=== PATIENT | male | born 1985 | race Caucasian/White ===

== ENCOUNTER 2021-10-21 14:48 | Emergency (ER) | payer SELFPAY ==
[~2021-10-21] VITALS: Ht 175 cm; Wt 100.0 kg
--- NOTE | 2021-10-21 15:30 | ED General ---
General Chief Complaint: General Problems/Pain Stated Complaint: NUMBNESS IN LEFT ARM - DIZZY - BILAT LEG PAIN Nursing Triage Note: PT TO ED W/ C/O "VEINS IN LEFT SHOULDER, ARM ET HAND 'STICKING OUT' ONSET X1 WK AGO ET AGAIN TODAY WHILE AT [employer]." PT ALSO REPORTS PAIN ET NUMBNESS TO BLL ONSET W/ ARM PAIN ET NUMBNESS. REPORTS CURRENTLY BEING TX FOR WC INJURY TO LT SHOULDER AFTER INJURING ON A SHELF AT WORK. NO OTHER C/O VOICED. Source of Information: Patient Exam Limitations: No Limitations History of Present Illness Date Seen by Provider: Oct 21, 2021 Time Seen by Provider: 14:56 Initial Comments This 35-year-old man presents to the emergency room with primary complaint of "bulging veins" and discomfort in the left chest, shoulder, and arm. He attempts to show me 1 of these bulging veins in the chest at the lateral aspect of his pectoralis muscle but this could be neither seen nor felt. He had an episode today and 1 about a week ago. He is noted to be hypertensive and sweating. However, it is very hot outside and his diaphoresis may be from the heat. He does appear rather anxious. He reports a remote injury over a year ago in which he struck his shoulder on a shelf at work. He describes an associated numbness in his arm and aching of the legs. Allergies and Home Medications Allergies Coded Allergies: No Known Drug Allergies (Unverified , 10/21/21) Patient Home Medication List Home Medication List Reviewed: Yes Review of Systems Review of Systems Constitutional: see HPI, diaphoresis EENTM: no symptoms reported Respiratory: no symptoms reported Cardiovascular: see HPI Gastrointestinal: no symptoms reported Genitourinary: no symptoms reported Musculoskeletal: see HPI Skin: no symptoms reported Psychiatric/Neurological: See HPI Hematologic/Lymphatic: No Symptoms Reported Past Hodrchs-Nuwmnz-Ugxwvt Hx Patient Social History Tobacco Use?: No Use of E-Cig and/or Vaping dev: Yes E-Cig or Vaping type used: Nicotine Substance use?: Yes Substance type: Marijuana Alcohol Use?: Yes Alcohol Frequency: Rarely Pt feels they are or have been: No Past Medical History Surgery/Hospitalization HX: CURRENTLY BEING TX FOR LT SHOULDER INJURY R/T WC. STATES RAN INTO A SHELF AT WORK SEVERAL WEEKS AGO Surgeries: No Respiratory: No Cardiac: No Neurological: No Genitourinary: No Gastrointestinal: No Musculoskeletal: No Endocrine: No HEENT: No Cancer: No Psychosocial: No Integumentary: No Physical Exam Vital Signs Vital Signs - First Documented 10/21/21 10/21/21 14:52 17:10 Temp 35.5 Pulse 107 Resp 20 B/P (MAP) 171/99 (123) Pulse Ox 99 O2 Delivery Room Air Capillary Refill : Less Than 3 Seconds Height, Weight, BMI Height: '" Weight: lbs. oz. 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, Other (Very anxious) Skin: Normal Color, Diaphoresis Progress/Results/Core Measures Suspected Sepsis SIRS Temperature: Pulse: 107 Respiratory Rate: 20 Laboratory Tests 10/21/21 15:10: White Blood Count 12.8H Blood Pressure 171 /99 Mean: 123 Laboratory Tests 10/21/21 15:10: Creatinine 1.38H, INR Comment 1.0, Platelet Count 269, Total Bilirubin 0.6 Results/Orders Lab Results Laboratory Tests Test 10/21/21 15:10 10/21/21 15:45 Range/Units White Blood Count 12.8 H 4.3-11.0 10^3/uL Red Blood Count 5.40 4.30-5.52 10^6/uL Hemoglobin 15.8 13.3-17.7 g/dL Hematocrit 45 40-54 % Mean Corpuscular Volume 82 80-99 fL Mean Corpuscular Hemoglobin 29 25-34 pg Mean Corpuscular Hemoglobin Concent 36 32-36 g/dL Red Cell Distribution Width 11.9 10.0-14.5 % Platelet Count 269 130-400 10^3/uL Mean Platelet Volume 10.4 9.0-12.2 fL Immature Granulocyte % (Auto) 0 % Neutrophils (%) (Auto) 89 H 42-75 % Lymphocytes (%) (Auto) 6 L 12-44 % Monocytes (%) (Auto) 4 0-12 % Eosinophils (%) (Auto) 0 0-10 % Basophils (%) (Auto) 0 0-10 % Neutrophils # (Auto) 11.4 H 1.8-7.8 X 10^3 Lymphocytes # (Auto) 0.8 L 1.0-4.0 X 10^3 Monocytes # (Auto) 0.6 0.0-1.0 X 10^3 Eosinophils # (Auto) 0.0 0.0-0.3 10^3/uL Basophils # (Auto) 0.0 0.0-0.1 10^3/uL Immature Granulocyte # (Auto) 0.0 0.0-0.1 10^3/uL Neutrophils % (Manual) 88 % Lymphocytes % (Manual) 6 % Monocytes % (Manual) 6 % Blood Morphology Comment NORMAL Prothrombin Time 13.1 12.2-14.7 SEC INR Comment 1.0 0.8-1.4 Activated Partial Thromboplast Time 26 24-35 SEC D-Dimer 0.03 0.00-0.49 UG/ML Sodium Level 140 135-145 MMOL/L Potassium Level 3.4 L 3.6-5.0 MMOL/L Chloride Level 104 98-107 MMOL/L Carbon Dioxide Level 21 21-32 MMOL/L Anion Gap 15 H 5-14 MMOL/L Blood Urea Nitrogen 18 7-18 MG/DL Creatinine 1.38 H 0.60-1.30 MG/DL Estimat Glomerular Filtration Rate 69 BUN/Creatinine Ratio 13 Glucose Level 162 H 70-105 MG/DL Calcium Level 9.2 8.5-10.1 MG/DL Corrected Calcium 8.8 8.5-10.1 MG/DL Magnesium Level 1.7 1.6-2.4 MG/DL Total Bilirubin 0.6 0.1-1.0 MG/DL Aspartate Amino Transf (AST/SGOT) 17 5-34 U/L Alanine Aminotransferase (ALT/SGPT) 51 0-55 U/L Alkaline Phosphatase 87 40-136 U/L Total Creatine Kinase 71 30-200 U/L Myoglobin 29.4 10.0-92.0 NG/ML Troponin I < 0.028 <0.028 NG/ML C-Reactive Protein High Sensitivity 0.12 0.00-0.50 MG/DL Total Protein 7.2 6.4-8.2 GM/DL Albumin 4.5 3.2-4.5 GM/DL Serum Alcohol < 10 <10 MG/DL Urine Opiates Screen NEGATIVE NEGATIVE Urine Oxycodone Screen NEGATIVE NEGATIVE Urine Methadone Screen NEGATIVE NEGATIVE Urine Propoxyphene Screen NEGATIVE NEGATIVE Urine Barbiturates Screen NEGATIVE NEGATIVE Ur Tricyclic Antidepressants Screen NEGATIVE NEGATIVE Urine Phencyclidine Screen NEGATIVE NEGATIVE Urine Amphetamines Screen NEGATIVE NEGATIVE Urine Methamphetamines Screen NEGATIVE NEGATIVE Urine Benzodiazepines Screen NEGATIVE NEGATIVE Urine Cocaine Screen NEGATIVE NEGATIVE Urine Cannabinoids Screen POSITIVE H NEGATIVE My Orders Orders - KAITLIN MIKE MD Cbc With Automated Diff (10/21/21 15:25) Magnesium (10/21/21 15:25) Chest 1 View, Ap/Pa Only (10/21/21 15:25) Ekg Tracing (10/21/21 15:25) Comprehensive Metabolic Panel (10/21/21 15:25) Myoglobin Serum (10/21/21 15:25) Protime With Inr (10/21/21 15:25) Partial Thromboplastin Time (10/21/21 15:25) O2 (10/21/21 15:25) Monitor-Rhythm Ecg Trace Only (10/21/21 15:25) Ed Iv/Invasive Line Start (10/21/21 15:25) Troponin I Robel (10/21/21 15:25) Alcohol (10/21/21 15:25) Drug Screen Stat (Urine) (10/21/21 15:25) Hs C Reactive Protein (10/21/21 15:30) Manual Differential (10/21/21 15:10) Creatine Kinase (10/21/21 15:57) Fibrin Degradation Products (10/21/21 15:57) Vital Signs/I&O 10/21/21 10/21/21 14:52 17:10 Temp 35.5 Pulse 107 88 Resp 20 20 B/P (MAP) 171/99 (123) 143/96 Pulse Ox 99 O2 Delivery Room Air Room Air Capillary Refill : Less Than 3 Seconds Blood Pressure Mean: 123 Progress Note : Progress Note Work-up was unremarkable. Patient calm down and blood pressure returned to normal. He was stable for discharge and follow-up with a PCP. ECG Initial ECG Impression Date: Oct 21, 2021 Initial ECG Impression Time: 15:42 Initial ECG Rate: 78 Initial ECG Rhythm: Normal Sinus Initial ECG Intervals: Normal Comment Normal sinus rhythm with no ST elevation or depression. No axis deviation. Incomplete right bundle branch block by automated read. Diagnostic Imaging Diagonstic Imaging: Xray Plain Films/CT/US/NM/MRI: chest Comments NAME: [facility] REC#: [id number] PT STATUS: REG ER : 1985 PHYSICIAN: KAITLIN MIKE MD ADMIT DATE: 10/21/21/ER Signed Date of Exam:10/21/21 CHEST 1 VIEW, AP/PA ONLY INDICATION: Chest pain. FINDINGS: The lungs are clear. There is no failure, effusion or pneumothorax. IMPRESSION: No acute appearing abnormality. Dictated by: Dictated on workstation # [id number] Dict: 10/21/21 1551 Trans: 10/21/21 1620 PJ [id number] Interpreted by: REJI BEARDEN Electronically signed by: REJI BEARDEN 10/21/21 1620 Departure Impression Primary Impression: Atypical chest pain Additional Impression: Episode of hypertension Disposition: 01 HOME, SELF-CARE Condition: Improved Departure-Patient Inst. Decision time for Depature: 17:03 Referrals: NO,LOCAL PHYSICIAN (PCP/Family) Primary Care Physician Patient Instructions: Chest Pain Add. Discharge Instructions: The exact cause of your symptoms today is uncertain. Please follow-up with a primary care provider soon as possible. Call tomorrow morning for an appointment. Drink plenty of clear liquids to stay well-hydrated, especially while it is very hot and humid. Return to the ER if you have a recurrence of these symptoms so that you may be evaluated with that is happening. Also return to care if you have other worsening of symptoms. All discharge instructions reviewed with patient and/or family. Voiced understanding. KAITLIN MIKE MD Oct 21, 2021 15:30
[2021-10-21 15:33] LABS: BASOPHILS % (AUTO) 0 % (0-10); EOSINOPHILS % (AUTO) 0 % (0-10); HEMATOCRIT 45 % (40-54); HEMOGLOBIN 15.8 g/dL (13.3-17.7); LYMPHOCYTES # (AUTO) 0.8 X 10^3 (1.0-4.0); LYMPHOCYTES % (AUTO) 6 % (12-44); MEAN CORPUSCULAR HEMOGLOBIN 29 pg (25-34); MEAN CORPUSCULAR HGB CONC 36 g/dL (32-36); MEAN CORPUSCULAR VOLUME 82 fL (80-99); MEAN PLATELET VOLUME 10.4 fL (9.0-12.2); MONOCYTES # (AUTO) 0.6 X 10^3 (0.0-1.0); MONOCYTES % (AUTO) 4 % (0-12); NEUTROPHILS # (AUTO) 11.4 X 10^3 (1.8-7.8); NEUTROPHILS % (AUTO) 89 % (42-75); PLATELET COUNT 269 10^3/uL (130-400); WHITE BLOOD COUNT 12.8 10^3/uL (4.3-11.0)
[2021-10-21 15:35] LABS: ALBUMIN 4.5 GM/DL (3.2-4.5)
[2021-10-21 15:36] LABS: POTASSIUM 3.4 MMOL/L (3.6-5.0)
[2021-10-21 15:37] LABS: CALCIUM 9.2 MG/DL (8.5-10.1)
[2021-10-21 15:38] LABS: PROTHROMBIN TIME PATIENT 13.1 SEC (12.2-14.7); TOTAL PROTEIN 7.2 GM/DL (6.4-8.2)
[2021-10-21 15:40] LABS: BILIRUBIN,TOTAL 0.6 MG/DL (0.1-1.0)
[2021-10-21 15:42] LABS: CREATININE SERUM 1.38 MG/DL (0.60-1.30)
[2021-10-21 15:45] LABS: MAGNESIUM 1.7 MG/DL (1.6-2.4)
[2021-10-21 15:50] LABS: LYMPHOCYTES % (MANUAL) 6 %; MONOCYTES % (MANUAL) 6 %; NEUTROPHILS % (MANUAL) 88 %; RBC MORPH NORMAL
--- NOTE | 2021-10-21 15:53 | Diagnostic Imaging Report ---
INDICATION: Chest pain. FINDINGS: The lungs are clear. There is no failure, effusion or pneumothorax. IMPRESSION: No acute appearing abnormality. Dictated by: Dictated on workstation # [id number]
[2021-10-21 16:03] LABS: AMPHETAMINE SCREEN, URINE NEGATIVE (NEGATIVE); BARBITURATE SCREEN URINE NEGATIVE (NEGATIVE); BENZODIAZEPINES SCREEN URINE NEGATIVE (NEGATIVE); CANNABINOID SCREEN, URINE POSITIVE (NEGATIVE); COCAINE SCREEN URINE NEGATIVE (NEGATIVE); METHADONE STAT NEGATIVE (NEGATIVE); OPIATE SCREEN URINE NEGATIVE (NEGATIVE); OXYCODONE STAT NEGATIVE (NEGATIVE); PROPOXYPHENE STAT NEGATIVE (NEGATIVE); TRICYCLIC ANTIDEPRESSANTS SCRE NEGATIVE (NEGATIVE)
[2021-10-21 17:10] VITALS: BP 143/96
== END 2021-10-21 17:10 | disposition home or self-care (01) ==
LOC: EDUNIT# 14:48 → ER 14:50
DX: I10 Essential (primary) hypertension (principal); F17.290 Nicotine dependence, other tobacco product, uncomplicated
CPT/HCPCS: 71045; 80053; 80306; 82550; 83735; 83874; 84484; 85007; 85027; 85379; 85610; 85730; 86141; G0480; 36415; 80320; 93005

== ENCOUNTER 2021-10-25 12:11 | Emergency (ER) | payer SELFPAY ==
[~2021-10-25] VITALS: Ht 177 cm; Wt 92.0 kg
[2021-10-25] MEDS ORDERED: NS IV 1000 ML 1,000 ML IV STA (12:57)
[2021-10-25] MEDS ORDERED: ONDANSETRON 4 MG/2 ML (SDV) Z0FRAN IVP ONE (13:00)
--- NOTE | 2021-10-25 13:06 | ED GI ---
General Chief Complaint: Abdominal/GI Problems Stated Complaint: N/V,WEAKNESS,COSTA,DIZZINESS, SEEN 10/21 Nursing Triage Note: PT WAS SEEN HERE FRIDAY, STATES HE HAS HAD NAUSEA AND DIZZY EVER SINCE. LOWER ABD PAIN STATES NORMAL BM NO URINARY ISSUES. ALSO PAIN 6IN LT SHOULDER AND NECK, STATES THAT ALL HE DOES IS SLEEP SINCE BEING HERE FRIDAY Source of Information: Patient Exam Limitations: No Limitations (GALLO CALLAHAN) History of Present Illness Date Seen by Provider: Oct 25, 2021 Time Seen by Provider: 13:02 Initial Comments Patient is a 35-year-old male who presents ED with lower abdominal discomfort vomiting diarrhea, headache, left shoulder pain. Patient with multiple complaints. 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 He reports pain on the left side of his neck. Patient states has been having a left-sided headache with pain shooting to the left-sided chest since Friday. He states this pain feels somewhat different than his chronic pain. Does have some pain with movement of the left shoulder. Patient was evaluated here on Friday with a cardiac work-up that was unremarkable. He states since then he still had some mild pain to his left-sided headache but has been taken Tylenol with improvement. Patient reports vomiting 20-30 episodes daily since Friday. Denies of any blood or mucus. He reports some loose stool without blood or mucus. Lower abdominal discomfort. No history of previous abdominal surgery. Reports burning sensation to lower abdomen with normal urination. Patient denies of any bowel or urine cons, saddle paresthesia, lower extremity weakness. No history of cancer. (GALLO CALLAHAN) Allergies and Home Medications Allergies Coded Allergies: No Known Drug Allergies (Unverified , 10/21/21) Patient Home Medication List Home Medication List Reviewed: Yes (GALLO CALLAHAN) Omeprazole (Omeprazole) 20 Mg Tablet.dr, 20 MG PO DAILY Prescribed by: STEPHEN SARAVIA on 10/25/21 152 Ondansetron (Ondansetron Odt) 4 Mg Tab.rapdis, 4 MG PO Q4H Prescribed by: STEPHEN SARAVIA on 10/25/21 1528 Discontinued Medications Promethazine HCl (Promethazine Tablet) 25 Mg Tablet, 25 MG PO Q6H PRN for NAUSEA/VOMITING Prescribed by: STEPHEN SARAVIA on 10/25/21 1523 Review of Systems Review of Systems Constitutional: No chills, No diaphoresis, No malaise, No weakness EENTM: No Double Vision, No Eye Pain Respiratory: Denies Cough, Denies Orthopnea Cardiovascular: Chest Pain; Denies Edema, Denies Irregular Heart Rate Gastrointestinal: Abdominal Pain, Diarrhea, Nausea, Vomiting Genitourinary: Denies Burning, Denies Discharge Musculoskeletal: back pain; No joint pain Skin: No change in color, No change in hair/nails Psychiatric/Neurological: Denies Anxiety, Denies Depressed (GALLO CALLAHAN) All Other Systems Reviewed Negative Unless Noted: Yes (GALLO CALLAHAN) Past Jjmdysn-Wtschi-Ekqfgo Hx Patient Social History Tobacco Use?: No Use of E-Cig and/or Vaping dev: Yes E-Cig or Vaping type used: Nicotine Substance use?: Yes Substance type: Marijuana Alcohol Use?: No (GALLO CALLAHAN) Past Medical History Surgery/Hospitalization HX: LT SHOULDER INJURY R/T WC. STATES RAN INTO A SHELF AT WORK SEVERAL WEEKS AGO Surgeries: No Respiratory: No Cardiac: No Neurological: No Genitourinary: No Gastrointestinal: No Musculoskeletal: No Endocrine: No HEENT: No Cancer: No Psychosocial: No Integumentary: No (GALLO CALLAHAN) Physical Exam Vital Signs Vital Signs - First Documented 10/25/21 12:37 Temp 36.1 Pulse 92 Resp 20 B/P (MAP) 149/112 (124) Pulse Ox 98 O2 Delivery Room Air (KAITLIN MIKE MD) Vital Signs Capillary Refill : Less Than 3 Seconds (GALLO CALLAHAN) Height/Weight/BMI Height: '" Weight: lbs. oz. kg; 29.00 BMI Method: General Appearance: WD/WN, no apparent distress HEENT: PERRL/EOMI, normal ENT inspection, TMs normal, pharynx normal Neck: non-tender, full range of motion, supple Respiratory: chest non-tender, lungs clear, normal breath sounds, no respiratory distress, no accessory muscle use Cardiovascular: regular rate, rhythm, no edema, no gallop, no JVD Gastrointestinal: normal bowel sounds, soft, no organomegaly, tenderness (Lower abdominal discomfort. ) Extremities: normal range of motion, non-tender, normal inspection, no pedal edema, no calf tenderness Back: normal inspection, no CVA tenderness Neurologic/Psychiatric: continuing education dean II-XII nml as tested, no motor/sensory deficits, al ert, normal mood/affect, oriented x 3 (GALLO CALLAHAN) Progress/Results/Core Measures Results/Orders Lab Results Laboratory Tests Test 10/25/21 13:20 10/25/21 14:07 Range/Units White Blood Count 10.3 4.3-11.0 10^3/uL Red Blood Count 5.91 H 4.30-5.52 10^6/uL Hemoglobin 17.1 13.3-17.7 g/dL Hematocrit 48 40-54 % Mean Corpuscular Volume 82 80-99 fL Mean Corpuscular Hemoglobin 29 25-34 pg Mean Corpuscular Hemoglobin Concent 35 32-36 g/dL Red Cell Distribution Width 11.8 10.0-14.5 % Platelet Count 294 130-400 10^3/uL Mean Platelet Volume 10.6 9.0-12.2 fL Immature Granulocyte % (Auto) 0 % Neutrophils (%) (Auto) 77 H 42-75 % Lymphocytes (%) (Auto) 14 12-44 % Monocytes (%) (Auto) 8 0-12 % Eosinophils (%) (Auto) 0 0-10 % Basophils (%) (Auto) 1 0-10 % Neutrophils # (Auto) 8.0 H 1.8-7.8 10^3/uL Lymphocytes # (Auto) 1.4 1.0-4.0 10^3/uL Monocytes # (Auto) 0.8 0.0-1.0 10^3/uL Eosinophils # (Auto) 0.0 0.0-0.3 10^3/uL Basophils # (Auto) 0.1 0.0-0.1 10^3/uL Immature Granulocyte # (Auto) 0.0 0.0-0.1 10^3/uL Sodium Level 141 135-145 MMOL/L Potassium Level 3.4 L 3.6-5.0 MMOL/L Chloride Level 103 98-107 MMOL/L Carbon Dioxide Level 26 21-32 MMOL/L Anion Gap 12 5-14 MMOL/L Blood Urea Nitrogen 17 7-18 MG/DL Creatinine 1.25 0.60-1.30 MG/DL Estimat Glomerular Filtration Rate 78 BUN/Creatinine Ratio 14 Glucose Level 119 H 70-105 MG/DL Calcium Level 10.4 H 8.5-10.1 MG/DL Corrected Calcium 8.5-10.1 MG/DL Magnesium Level 2.1 1.6-2.4 MG/DL Total Bilirubin 1.0 0.1-1.0 MG/DL Aspartate Amino Transf (AST/SGOT) 19 5-34 U/L Alanine Aminotransferase (ALT/SGPT) 53 0-55 U/L Alkaline Phosphatase 77 40-136 U/L Troponin I < 0.028 <0.028 NG/ML Total Protein 7.5 6.4-8.2 GM/DL Albumin 4.8 H 3.2-4.5 GM/DL Lipase 17 8-78 U/L Influenza Type A (RT-PCR) Not Detected Not Detecte Influenza Type B (RT-PCR) Not Detected Not Detecte SARS-CoV-2 RNA (RT-PCR) Not Detected Not Detecte Urine Color YELLOW Urine Clarity SL CLOUDY Urine pH 7.5 5-9 Urine Specific Lutz 1.025 H 1.016-1.022 Urine Protein NEGATIVE NEGATIVE Urine Glucose (UA) NEGATIVE NEGATIVE Urine Ketones 3+ H NEGATIVE Urine Nitrite NEGATIVE NEGATIVE Urine Bilirubin 1+ H NEGATIVE Urine Urobilinogen 1.0 < = 1.0 MG/DL Urine Leukocyte Esterase NEGATIVE NEGATIVE Urine RBC (Auto) NEGATIVE NEGATIVE Urine RBC NONE /HPF Urine WBC NONE /HPF Urine Crystals PRESENT H /LPF Urine Amorphous Sediment MOD COLTON PHOSPHATE H /LPF Urine Bacteria NEGATIVE /HPF Urine Casts NONE /LPF Urine Mucus NEGATIVE /LPF Urine Culture Indicated NO (KAITLIN MIKE MD) Vital Signs/I&O 10/25/21 10/25/21 12:37 15:40 Temp 36.1 36.8 Pulse 92 87 Resp 20 14 B/P (MAP) 149/112 (124) 143/102 Pulse Ox 98 99 O2 Delivery Room Air 10/25/21 23:59 Intake Total 1000 ml Balance 1000 ml (KAITLIN MIKE MD) Blood Pressure Mean: 124 Comment Sinus rhythm with marked sinus arrhythmia, incomplete right bundle branch block, 64 bpm, QRS duration 106 MS, QTc 428 MS. (GALLO CALLAHAN) Departure Communication (PCP) Patient with multiple complaints. Reports excessive vomiting since Friday. Patient vital signs stable. Was given GI cocktail, round of Zofran and Phenergan with improvement of the nausea. Patient was complained of lower abdominal pain. Due to the excessive vomiting and pain CT scan was ordered of the abdomen which was unremarkable. Patient was seen here on Friday for atypical chest pain. His cardiac work-up was negative then as well as today. EKG normal sinus rhythm with marked sinus arrhythmia. Incomplete right bundle branch block. Normal troponin. Had a negative D-dimer on Friday. CT scan the head due to this left-sided hip pain was unremarkable. He reports his pain deedee oting down the left side the neck into the chest with some pain in the left arm as well. He states he is currently being treated for a possible thoracic nerve injury secondary to work. Has not seen a specialist regarding this. Some of the pain may be result from this previous injury. Nausea vomiting could be more viral in nature. Discussed the PPI for the gastritis. Patient did appear dehydrated and was given a liter fluid. Was tolerating p.o. fluids at bedside. COVID influenza negative. No surgical abdomen. No evidence of strokelike symptoms. No meningeal signs. Recommend outpatient follow-up. (GALLO CALLAHAN) Impression Primary Impression: Abdominal pain Additional Impressions: Headache Chest pain Nausea and vomiting Disposition: HOME, SELF-CARE Condition: Stable Departure-Patient Inst. Decision time for Depature: 15:22 (GALLO CALLAHAN) Referrals: NO,LOCAL PHYSICIAN (PCP/Family) Primary Care Physician Patient Instructions: Nausea and Vomiting, Adult ED Scripts Ondansetron (Ondansetron Odt) 4 Mg Tab.rapdis 4 MG PO Q4H, #8 TAB Prov: GALLO CALLAHAN 10/25/21 Omeprazole (Omeprazole) 20 Mg Tablet. 20 MG PO DAILY, #20 TAB Prov: GALLO CALLAHAN 10/25/21 ATTENDING PHYSICIAN NOTE: I was physically present as attending physician in the emergency department during the care of this patient, but I was not directly involved in the decision making or delivery of care for this patient. (KAITLIN MIKE MD) GALLO CALLAHAN Oct 25, 2021 13:05 KAITLIN MIKE MD Oct 26, 2021 20:34
[2021-10-25] MEDS ORDERED: NS 100 ML (IVPB) BAG IV ONE (13:30)
[2021-10-25] MEDS ORDERED: IOHEXOL 350 MG/ML 100 ML (OMNIPAQUE 350) VIAL IV ONE (13:30)
[2021-10-25 13:41] LABS: BASOPHILS # (AUTO) 0.1 10^3/uL (0.0-0.1); BASOPHILS % (AUTO) 1 % (0-10); EOSINOPHILS % (AUTO) 0 % (0-10); HEMATOCRIT 48 % (40-54); HEMOGLOBIN 17.1 g/dL (13.3-17.7); LYMPHOCYTES # (AUTO) 1.4 10^3/uL (1.0-4.0); LYMPHOCYTES % (AUTO) 14 % (12-44); MEAN CORPUSCULAR HEMOGLOBIN 29 pg (25-34); MEAN CORPUSCULAR HGB CONC 35 g/dL (32-36); MEAN CORPUSCULAR VOLUME 82 fL (80-99); MEAN PLATELET VOLUME 10.6 fL (9.0-12.2); MONOCYTES # (AUTO) 0.8 10^3/uL (0.0-1.0); MONOCYTES % (AUTO) 8 % (0-12); NEUTROPHILS % (AUTO) 77 % (42-75); PLATELET COUNT 294 10^3/uL (130-400); WHITE BLOOD COUNT 10.3 10^3/uL (4.3-11.0)
[2021-10-25 13:46] LABS: ALBUMIN 4.8 GM/DL (3.2-4.5)
[2021-10-25 13:47] LABS: CHLORIDE 103 MMOL/L (98-107); POTASSIUM 3.4 MMOL/L (3.6-5.0); SODIUM 141 MMOL/L (135-145)
[2021-10-25 13:48] LABS: CALCIUM 10.4 MG/DL (8.5-10.1)
[2021-10-25 13:49] LABS: GLUCOSE 119 MG/DL (70-105); TOTAL PROTEIN 7.5 GM/DL (6.4-8.2)
[2021-10-25 13:50] LABS: CARBON DIOXIDE 26 MMOL/L (21-32)
[2021-10-25 13:52] LABS: ALKALINE PHOSPHATASE 77 U/L (40-136)
[2021-10-25 13:53] LABS: CREATININE SERUM 1.25 MG/DL (0.60-1.30); GFR ESTIMATED 78
[2021-10-25 13:54] LABS: BUN/CREATININE RATIO 14
[2021-10-25 13:55] LABS: ALANINE AMINOTRANSFERASE 53 U/L (0-55)
[2021-10-25 13:56] LABS: MAGNESIUM 2.1 MG/DL (1.6-2.4)
[2021-10-25 13:57] LABS: LIPASE 17 U/L (8-78)
[2021-10-25 14:16] LABS: CLARITY,URINE SL CLOUDY; COLOR,URINE YELLOW; GLUCOSE, URINE (UA) NEGATIVE (NEGATIVE); KETONES,URINE 3+ (NEGATIVE); LEUKOCYTE ESTERASE ,URINE NEGATIVE (NEGATIVE); NITRITE,URINE NEGATIVE (NEGATIVE); PH,URINE 7.5 (5-9); PROTEIN,URINE NEGATIVE (NEGATIVE)
[2021-10-25 14:23] LABS: AMORPHOUS SEDIMENT,UR MOD AMOR PHOSPHATE /LPF; BACTERIA,URINE NEGATIVE /HPF; BILIRUBIN,URINE 1+ (NEGATIVE)
--- NOTE | 2021-10-25 14:33 | Diagnostic Imaging Report ---
EXAMINATION: CT head without contrast. TECHNIQUE: Multiple contiguous axial images were obtained through the brain without the use of intravenous contrast. All CT scans use one or more of the following dose optimizing techniques: automated exposure control, MA and/or KvP adjustment based on patient size and exam type or iterative reconstruction. HISTORY: Headache. Nausea and vomiting. Head injury. COMPARISON: None available. FINDINGS: No large acute territorial ischemia, mass, or hemorrhage. No midline shift or mass effect. The ventricles, cortical sulci, and basilar cisterns are patent and unremarkable. The orbits are normal. Retained secretions are seen in the right maxillary sinus and right sphenoid sinus. Mastoid air cells are clear. No soft tissue abnormality is seen. No osseous lesions or fractures are seen. IMPRESSION: 1. No large acute territorial ischemia, mass, or hemorrhage. 2. Paranasal sinus disease involving the right maxillary and sphenoid sinuses. Dictated by: Dictated on workstation # [id number]
--- NOTE | 2021-10-25 14:38 | Diagnostic Imaging Report ---
PROCEDURE: CT abdomen and pelvis with contrast, rule out appendicitis. TECHNIQUE: Multiple contiguous axial images were obtained through the abdomen and pelvis after the administration of intravenous contrast. All CT scans use one or more of the following dose optimizing techniques: automated exposure control, MA and/or KvP adjustment based on patient size and exam type or iterative reconstruction. INDICATION: Nausea, emesis and diarrhea. There is no focal hepatic, gallbladder, pancreatic, adrenal gland or splenic abnormality. Kidneys are also unremarkable. No appendiceal inflammation is seen. There is no evidence of bowel obstruction. No free fluid is seen within the abdomen or pelvis. Unopacified bladder is unremarkable in appearance. IMPRESSION: No acute abnormality. Dictated by: Dictated on workstation # [id number]
[2021-10-25] MEDS ORDERED: LIDOCAINE 2% VISCOUS 15 ML UDC PO ONE (15:00)
[2021-10-25] MEDS ORDERED: ANTACID SUSP 30 ML UDC (MYLANTA) PO ONE (15:00)
[2021-10-25] MEDS ORDERED: PROMETHAZINE INJ 25 MG/ML (PHENERGAN) AMP IVP ONE (15:00)
[2021-10-25] MEDS ORDERED: PROM25TA14 PO (15:23)
[2021-10-25] MEDS ORDERED: OMEP20TA56 PO (15:24)
[2021-10-25] MEDS ORDERED: ONDA4TAB11 PO (15:28)
[2021-10-25 15:40] VITALS: BP 143/102
== END 2021-10-25 15:28 | disposition home or self-care (01) ==
LOC: EDUNIT# 12:11 → ER 12:13
DX: R11.2 Nausea with vomiting, unspecified (principal); R07.89 Other chest pain; R51.9 Headache, unspecified; R10.30 Lower abdominal pain, unspecified; I45.10 Unspecified right bundle-branch block; F17.290 Nicotine dependence, other tobacco product, uncomplicated; Z20.822 Contact with and (suspected) exposure to COVID-19; Z28.310 Unvaccinated for COVID-19
CPT/HCPCS: 36415; 70450; 74177; 80053; 81000; 83690; 83735; 84484; 85025; 87636; 93005

== ENCOUNTER 2021-11-04 19:35 | Emergency (ER) | payer SELFPAY ==
[~2021-11-04] VITALS: Ht 177.8 cm; Wt 90.7 kg
[~2021-11-04 19:35] MED LIST: OMEP20TA56 PO; ONDA4TAB11 PO; PROM25TA14 PO
[2021-11-04] MEDS ORDERED: NS IV 1000 ML 1,000 ML IV STA (20:12)
[2021-11-04] MEDS ORDERED: ONDANSETRON 4 MG/2 ML (SDV) Z0FRAN IVP ONE (20:15)
[2021-11-04 20:17] LABS: BASOPHILS # (AUTO) 0.1 10^3/uL (0.0-0.1); BASOPHILS % (AUTO) 1 % (0-10); EOSINOPHILS # (AUTO) 0.1 10^3/uL (0.0-0.3); EOSINOPHILS % (AUTO) 2 % (0-10); HEMATOCRIT 49 % (40-54); LYMPHOCYTES # (AUTO) 2.5 10^3/uL (1.0-4.0); LYMPHOCYTES % (AUTO) 34 % (12-44); MEAN CORPUSCULAR HEMOGLOBIN 29 pg (25-34); MEAN CORPUSCULAR HGB CONC 35 g/dL (32-36); MEAN CORPUSCULAR VOLUME 82 fL (80-99); MONOCYTES # (AUTO) 0.7 10^3/uL (0.0-1.0); MONOCYTES % (AUTO) 10 % (0-12); NEUTROPHILS % (AUTO) 54 % (42-75); PLATELET COUNT 319 10^3/uL (130-400); WHITE BLOOD COUNT 7.4 10^3/uL (4.3-11.0)
--- NOTE | 2021-11-04 20:21 | ED Abdominal Pain ---
General Chief Complaint: Abdominal/GI Problems Stated Complaint: VOMITING/"OLD" BLOOD IN VOMIT Nursing Triage Note: PT AMBULATORY TO ROOM WITH PT MOTHER. PT STATES HE HAS HAD NAUSEA AND HEARTBURN FOR 2-3WEEKS. PT STATES HE HAS BEEN SEEN HERE 2 TIMES IN THE LAST COUPLE WEEKS AND GIVEN MEDICATION FOR NAUSEA AND HEARTBURN. PT STATES THESE MEDS HELPED BUT TODAY HE STARTED TO VOMIT BLOOD. PT STATES HE HAS VOMITED "A GOOD AMOUNT" 7-10 TIMES IN THE LAST HOUR AND IT WAS "BLACK/BROWN BLOOD." PT DENIES ABD PAIN OR FEELING SICK OTHERWISE Source of Information: Patient Exam Limitations: No Limitations (ASHA RUELAS) History of Present Illness Date Seen by Provider: Nov 04, 2021 Time Seen by Provider: 20:16 Initial Comments This is a 35-year-old male who presents to the emergency room for nausea and vom iting. He states that he has been throwing up pretty much consistently for 3 weeks and he has been seen in the emergency room multiple times without a definitive source identified. Today he started having some black/brown blood in his vomitus. He has taken Phenergan this morning which did seem to help her symptoms. He denies fever, chills, severe chest pain, shortness of breath, severe abdominal pain or other symptoms at this time. Severity/Quality: Moderate Modifying Factors: Improves With Antacids (ASHA RUELAS) Allergies and Home Medications Allergies Coded Allergies: No Known Drug Allergies (Unverified , 10/21/21) Patient Home Medication List Home Medication List Reviewed: Yes (ASHA RUELAS) Omeprazole (Omeprazole) 20 Mg Tablet.dr, 20 MG PO DAILY Prescribed by: STEPHEN SARAVIA on 10/25/21 1524 Ondansetron (Ondansetron Odt) 4 Mg Tab.rapdis, 4 MG PO Q4H Prescribed by: STEPHEN SARAVIA on 10/25/21 1528 Ondansetron (Ondansetron Odt) 4 Mg Tab.rapdis, 4 MG PO TID Prescribed by: Cornel Ruelas on 11/04/212121 Review of Systems Review of Systems Constitutional: no symptoms reported EENTM: No Symptoms Reported Respiratory: No Symptoms Reported Cardiovascular: No Symptoms Reported Gastrointestinal: Nausea, Vomiting Genitourinary: No Symptoms Reported Musculoskeletal: no symptoms reported Skin: no symptoms reported (ASHA RUELAS) Past Dueomlv-Xdmnxv-Skziov Hx Patient Social History Tobacco Use?: No Use of E-Cig and/or Vaping dev: Yes Use of E-Cig and/or Vaping [place]: Former User Substance use?: Yes Substance type: Marijuana Substance frequency: Once in a while Alcohol Use?: No (ASHA RUELAS) Immunizations Up To Date Influenza Vaccine Up-to-Date: No; Not Current (ASHA RUELAS) Past Medical History Surgery/Hospitalization HX: LT SHOULDER INJURY R/T WC. STATES RAN INTO A SHELF AT WORK SEVERAL WEEKS AGO Surgeries: No Respiratory: No Cardiac: No Neurological: No Genitourinary: No Gastrointestinal: No Musculoskeletal: No Endocrine: No HEENT: No Cancer: No Psychosocial: No Integumentary: No (ASHA RUELAS) Physical Exam Vital Signs Vital Signs - First Documented 11/04/21 19:43 Temp 35.3 Pulse 104 Resp 20 B/P (MAP) 126/97 (107) Pulse Ox 98 (MATHEW,YELITZA K DO) Vital Signs Capillary Refill : (ASHA RUELAS) Height/Weight/BMI Height: '" Weight: lbs. oz. kg; 28.00 BMI Method: General Appearance: WD/WN, no apparent distress HEENT: PERRL/EOMI, TMs normal Neck: non-tender Respiratory: chest non-tender, lungs clear, normal breath sounds Cardiovascular: regular rate, rhythm, no edema Gastrointestinal: normal bowel sounds, non tender, soft Extremities: normal range of motion, non-tender Back: normal inspection Neurologic/Psychiatric: sandblaster glass II-XII nml as tested, oriented x 3 Skin: normal color (ASHA RUELAS) Progress/Results/Core Measures Results/Orders Lab Results Laboratory Tests Test 11/04/21 19:55 11/04/21 20:17 Range/Units White Blood Count 7.4 4.3-11.0 10^3/uL Red Blood Count 5.97 H 4.30-5.52 10^6/uL Hemoglobin 17.0 13.3-17.7 g/dL Hematocrit 49 40-54 % Mean Corpuscular Volume 82 80-99 fL Mean Corpuscular Hemoglobin 29 25-34 pg Mean Corpuscular Hemoglobin Concent 35 32-36 g/dL Red Cell Distribution Width 11.4 10.0-14.5 % Platelet Count 319 130-400 10^3/uL Mean Platelet Volume 11.0 9.0-12.2 fL Immature Granulocyte % (Auto) 0 % Neutrophils (%) (Auto) 54 42-75 % Lymphocytes (%) (Auto) 34 12-44 % Monocytes (%) (Auto) 10 0-12 % Eosinophils (%) (Auto) 2 0-10 % Basophils (%) (Auto) 1 0-10 % Neutrophils # (Auto) 4.0 1.8-7.8 10^3/uL Lymphocytes # (Auto) 2.5 1.0-4.0 10^3/uL Monocytes # (Auto) 0.7 0.0-1.0 10^3/uL Eosinophils # (Auto) 0.1 0.0-0.3 10^3/uL Basophils # (Auto) 0.1 0.0-0.1 10^3/uL Immature Granulocyte # (Auto) 0.0 0.0-0.1 10^3/uL Sodium Level 142 135-145 MMOL/L Potassium Level 3.2 L 3.6-5.0 MMOL/L Chloride Level 102 98-107 MMOL/L Carbon Dioxide Level 23 21-32 MMOL/L Anion Gap 17 H 5-14 MMOL/L Blood Urea Nitrogen 17 7-18 MG/DL Creatinine 1.39 H 0.60-1.30 MG/DL Estimat Glomerular Filtration Rate 69 BUN/Creatinine Ratio 12 Glucose Level 129 H 70-105 MG/DL Calcium Level 10.4 H 8.5-10.1 MG/DL Corrected Calcium 8.5-10.1 MG/DL Total Bilirubin 0.9 0.1-1.0 MG/DL Aspartate Amino Transf (AST/SGOT) 26 5-34 U/L Alanine Aminotransferase (ALT/SGPT) 81 H 0-55 U/L Alkaline Phosphatase 88 40-136 U/L Total Protein 7.6 6.4-8.2 GM/DL Albumin 4.8 H 3.2-4.5 GM/DL Gastric Fluid Occult Blood POSITIVE H NEGATIVE (YELITZA CARMONA DO) Vital Signs/I&O 11/04/21 11/04/21 19:43 21:25 Temp 35.3 Pulse 104 77 Resp 20 B/P (MAP) 126/97 (107) 130/79 Pulse Ox 98 96 (YELITZA CARMONA DO) Blood Pressure Mean: 107 Departure Communication (Admissions) Patient feels markedly improved after IV hydration and Zofran here in the emergency room. He appears to be having salmon microtears of the esophagus from repetitive vomiting. No evidence of Boerhaave's or other emergent condition. Lab work reassuring. We will refill his Zofran and I discussed cessation of marijuana use as this could be contributing to his symptoms. He is in agreement to the care plan. He will return if worse. (ASHA RUELAS) Impression Primary Impression: Nausea and vomiting Disposition: HOME, SELF-CARE Condition: Stable Departure-Patient Inst. Decision time for Depature: 21:21 (ASHA RUELAS) Referrals: NO,LOCAL PHYSICIAN (PCP/Family) Primary Care Physician Patient Instructions: Nausea and Vomiting, Adult Scripts Ondansetron (Ondansetron Odt) 4 Mg Tab.rapdis 4 MG PO TID for Nausea, #30 TAB Prov: ASHA RUELAS 11/04/21 ATTENDING PHYSICIAN NOTE: I WAS PHYSICALLY PRESENT ER PHYSICIAN, BUT I WAS NOT INVOLVED IN ANY DECISION MAKING OR ANY CARE OF THIS PATIENT. (YELITZA CARMONA DO) ASHA RUELAS Nov 04, 2021 20:21 YELITZA CARMONA DO Nov 06, 2021 02:10
[2021-11-04 20:29] LABS: ALBUMIN 4.8 GM/DL (3.2-4.5); CHLORIDE 102 MMOL/L (98-107); POTASSIUM 3.2 MMOL/L (3.6-5.0); SODIUM 142 MMOL/L (135-145)
[2021-11-04 20:31] LABS: CALCIUM 10.4 MG/DL (8.5-10.1)
[2021-11-04 20:32] LABS: GLUCOSE 129 MG/DL (70-105); TOTAL PROTEIN 7.6 GM/DL (6.4-8.2)
[2021-11-04 20:33] LABS: BILIRUBIN,TOTAL 0.9 MG/DL (0.1-1.0); CARBON DIOXIDE 23 MMOL/L (21-32)
[2021-11-04 20:33] LABS: OCCULT BLOOD,GASTRIC FLUID POSITIVE (NEGATIVE)
[2021-11-04 20:35] LABS: ALKALINE PHOSPHATASE 88 U/L (40-136); CREATININE SERUM 1.39 MG/DL (0.60-1.30); GFR ESTIMATED 69
[2021-11-04 20:36] LABS: BUN/CREATININE RATIO 12
[2021-11-04 20:38] LABS: ALANINE AMINOTRANSFERASE 81 U/L (0-55)
--- NOTE | 2021-11-04 20:53 | Diagnostic Imaging Report ---
INDICATION: Hemoptysis. COMPARISON: Prior examination from 10/21/2021. FINDINGS: The heart size, mediastinal configuration, and pulmonary vascularity are within normal limits. There is no pleural effusion, pneumothorax or pneumonia. The osseous structures are unremarkable. IMPRESSION: No acute cardiopulmonary abnormality. Dictated by: Dictated on workstation # [id number]
[2021-11-04] MEDS ORDERED: ONDA4TAB11 PO (21:22)
[2021-11-04 21:25] VITALS: BP 130/79
== END 2021-11-04 21:30 | disposition home or self-care (01) ==
LOC: EDUNIT# 19:35 → ER 19:36
DX: R11.2 Nausea with vomiting, unspecified (principal); Z87.891 Personal history of nicotine dependence
CPT/HCPCS: 36415; 71045; 80053; 82271; 85025

== ENCOUNTER 2022-07-05 11:26 | Emergency (ER) | payer SELFPAY ==
[~2022-07-05] VITALS: Ht 177 cm; Wt 95.0 kg
[2022-07-05] MEDS ORDERED: NS IV 1000 ML 1,000 ML IV STA (12:15)
[2022-07-05] MEDS ORDERED: ONDANSETRON 4 MG/2 ML (SDV) Z0FRAN IVP ONE (12:15)
--- NOTE | 2022-07-05 12:20 | ED General ---
General Chief Complaint: Dizziness/Syncope Stated Complaint: CHEST CONGESTION | NAUSEA | DIZZINESS Nursing Triage Note: PT CO OF DIZZINESS, PT STATES HAS BEEN VOMITING DAILY FOR A MONTH. DIZZINESS STARTED THIS AM. DOES HAVE SOME SWEATS. PT HAS ANXIETY AND HAS STARTED NEW MED LAST WEEK Source of Information: Patient Exam Limitations: No Limitations (GALLO CALLAHAN) History of Present Illness Date Seen by Provider: Jul 05, 2022 Time Seen by Provider: 12:17 Initial Comments Patient is a 36-year-old male with a history of depression who presents to the ED complaining of dizziness, vomiting, sickness over the past 10 months. He states the symptoms gradually got worse over the past week and a half and worse over the past few days. He states he has been having left upper abdominal discomfort with chest pains. He states today he woke up stood up and noticed his heart pounding. Starting having sweats and vomiting several times. Reports vomiting acid and bile. States he had dizziness and felt like the room was spinning. The dizziness has improved. He is feeling a little better at this time. He does have a history of GERD currently on famotidine and omeprazole. He is scheduled to get an EGD next month. Follows up with Dr. Hollingsworth. He states the pain in his chest is described as sharp and typically intermittent. Denies shortness of breath or cough. He started a new medication Trillinex last week. He denies history of heart disease. It was recommend by his primary care physician to follow-up with [employer]. Denies of any dysuria, hematuria, family history of some cardiac , History of asthma, smoking. Patient does not appear toxic. Patient denies diarrhea, ear pain, ear ringing, visual changes, headache (GALLO CALLAHAN) Allergies and Home Medications Allergies Coded Allergies: No Known Drug Allergies (Unverified , 10/21/21) Patient Home Medication List Home Medication List Reviewed: Yes (GALLO CALLAHAN) Omeprazole (Omeprazole) 20 Mg Tablet., 20 MG PO DAILY Prescribed by: STEPHEN SARAVIA on 10/25/21 1524 Ondansetron (Ondansetron Odt) 4 Mg Tab.rapdis, 4 MG PO Q4H Prescribed by: STEPHEN SARAVIA on 10/25/21 1528 Ondansetron (Ondansetron Odt) 4 Mg Tab.rapdis, 4 MG PO TID Prescribed by: Cornel Baca on 11/04/212121 Review of Systems Review of Systems Constitutional: No chills, No diaphoresis, No fever; malaise, weakness EENTM: No ear pain, No blurred vision Respiratory: No cough, No short of breath Cardiovascular: chest pain; No edema Gastrointestinal: abdominal pain; No diarrhea; nausea Genitourinary: No decreased output, No discharge Musculoskeletal: No back pain (GALLO CALLAHAN) All Other Systems Reviewed Negative Unless Noted: Yes (GALLO CALLAHAN) Past Erydlvx-Ncrpmk-Luzere Hx Patient Social History Tobacco Use?: No Substance use?: No Alcohol Use?: No Pt feels they are or have been: No (GALLO CALLAHAN) Immunizations Up To Date Influenza Vaccine Up-to-Date: No; Not Current (GALLO CALLAHAN) Past Medical History Surgery/Hospitalization HX: LT SHOULDER INJURY R/T WC. STATES RAN INTO A SHELF AT WORK SEVERAL WEEKS AGO. GERD, ANXIETY Surgeries: No Respiratory: No Cardiac: No Neurological: No Genitourinary: No Gastrointestinal: No Musculoskeletal: No Endocrine: No HEENT: No Cancer: No Psychosocial: No Integumentary: No (GALLO CALLAHAN) Physical Exam Vital Signs Vital Signs - First Documented 07/05/22 11:40 Temp 36.6 Pulse 70 Resp 18 B/P (MAP) 139/89 (106) Pulse Ox 98 (KAITLIN MIKE MD) Vital Signs Capillary Refill : Less Than 3 Seconds (GALLO CALLAHAN) Height, Weight, BMI Height: '" Weight: lbs. oz. kg; 30.00 BMI Method: General Appearance: No Apparent Distress, WD/WN Eyes: Bilateral Eye Normal Inspection, Bilateral Eye PERRL, Bilateral Eye EOMI, Bilateral Eye Abnormal Pupil HEENT: PERRL/EOMI, TMs Normal, Normal ENT Inspection, Pharynx Normal Neck: Full Range of Motion, Normal Inspection, Non Tender, Supple Respiratory: Chest Non Tender, Lungs Clear, Normal Breath Sounds, No Accessory Muscle Use, No Respiratory Distress Cardiovascular: Regular Rate, Rhythm, No Edema, No Gallop, No JVD, No Murmur Gastrointestinal: Normal Bowel Sounds, No Organomegaly, No Pulsatile Mass, Soft, Tenderness (Epigastric, left upper quadrant tenderness.) Back: Normal Inspection, No CVA Tenderness Extremity: Normal Capillary Refill, Normal Inspection, Normal Range of Motion Neurologic/Psychiatric: Alert, Oriented x3, No Motor/Sensory Deficits, Normal Mood/Affect (GALLO CALLAHAN) Progress/Results/Core Measures Suspected Sepsis SIRS Temperature: Pulse: 70 Respiratory Rate: 18 Laboratory Tests 07/05/22 12:37: White Blood Count 7.7 Blood Pressure 139 /89 Mean: 106 Laboratory Tests 07/05/22 12:37: Creatinine 1.21, Platelet Count 266, Total Bilirubin 0.8 (GALLO CALLAHAN) Results/Orders Lab Results Laboratory Tests Test 07/05/22 12:37 Range/Units White Blood Count 7.7 4.3-11.0 10^3/uL Red Blood Count 5.80 H 4.30-5.52 10^6/uL Hemoglobin 17.0 13.3-17.7 g/dL Hematocrit 47 40-54 % Mean Corpuscular Volume 82 80-99 fL Mean Corpuscular Hemoglobin 29 25-34 pg Mean Corpuscular Hemoglobin Concent 36 32-36 g/dL Red Cell Distribution Width 11.7 10.0-14.5 % Platelet Count 266 130-400 10^3/uL Mean Platelet Volume 10.5 9.0-12.2 fL Immature Granulocyte % (Auto) 0 % Neutrophils (%) (Auto) 81 H 42-75 % Lymphocytes (%) (Auto) 11 L 12-44 % Monocytes (%) (Auto) 7 0-12 % Eosinophils (%) (Auto) 0 0-10 % Basophils (%) (Auto) 1 0-10 % Neutrophils # (Auto) 6.2 1.8-7.8 10^3/uL Lymphocytes # (Auto) 0.8 L 1.0-4.0 10^3/uL Monocytes # (Auto) 0.5 0.0-1.0 10^3/uL Eosinophils # (Auto) 0.0 0.0-0.3 10^3/uL Basophils # (Auto) 0.1 0.0-0.1 10^3/uL Immature Granulocyte # (Auto) 0.0 0.0-0.1 10^3/uL Sodium Level 140 135-145 MMOL/L Potassium Level 3.8 3.6-5.0 MMOL/L Chloride Level 105 98-107 MMOL/L Carbon Dioxide Level 27 21-32 MMOL/L Anion Gap 8 5-14 MMOL/L Blood Urea Nitrogen 19 H 7-18 MG/DL Creatinine 1.21 0.60-1.30 MG/DL Estimat Glomerular Filtration Rate 81 BUN/Creatinine Ratio 16 Glucose Level 109 H 70-105 MG/DL Calcium Level 9.8 8.5-10.1 MG/DL Corrected Calcium 8.5-10.1 MG/DL Magnesium Level 2.3 1.6-2.4 MG/DL Total Bilirubin 0.8 0.1-1.0 MG/DL Aspartate Amino Transf (AST/SGOT) 25 5-34 U/L Alanine Aminotransferase (ALT/SGPT) 62 H 0-55 U/L Alkaline Phosphatase 81 40-136 U/L Troponin I < 0.028 <0.028 NG/ML C-Reactive Protein High Sensitivity 0.06 0.00-0.50 MG/DL Total Protein 7.7 6.4-8.2 GM/DL Albumin 4.9 H 3.2-4.5 GM/DL (KAITLIN MIKE MD) Vital Signs/I&O 07/05/22 07/05/22 11:40 14:37 Temp 36.6 36.6 Pulse 70 65 Resp 18 18 B/P (MAP) 139/89 (106) 139/89 Pulse Ox 98 99 07/06/22 00:00 Intake Total 1000 ml Balance 1000 ml (KAITLIN MIKE MD) Vital Signs/I&O Capillary Refill : Less Than 3 Seconds (GALLO CALLAHAN) Blood Pressure Mean: 106 ECG Comment Sinus arrhythmia, 59 bpm, QRS duration 114 MS, QTc 400 MS (GALLO CALLAHAN) Departure Communication (PCP) Reviewed previous ER visits, lab testing, outpatient work-ups. Patient presents ED with vomiting, chest pain, dizziness. He has had intermittent "sickness" over the past 10 months. He gets episodes of several episodes of vomiting with upper abdominal pain. Denies hematemesis or diarrhea. Currently on famotidine and omeprazole prescribed by his primary care physician. He states today woke up started feeling dizzy. Denies of room spinning, ear ringing, hearing loss. No evidence of nystagmus. Negative Kayy-Hallpike. He states his vision turned blurry and felt like he was going to pass out. He did not have a syncopal episode. Started having fast heart palpitations. Due to his current chest complaint cardiac work-up was ordered with chest x-ray, CBC, CMP, magnesium, EKG. EKG did not show any evidence of ST elevation or depression Chest x-ray was unremarkable. Cardiac work-up unremarkable. Patient was given a liter of fluid for the vomiting with nausea. Started having dizziness here and was given meclizine. Patient was not orthostatic hypotensive. No known cardiac history. He scheduled to follow-up next month to get a EGD. Patient vital signs stable. He has no focal neural deficits. Neuro exam appropriate for age. Patient denies hearing changes, ear ringing, fever. He had no meningeal signs. Pa tient with a steady gait here. Discussed all results with patient. Differential diagnosis of ACS, arrhythmia, vertigo, pancreatitis, cholecystitis GERD, gastritis. CBC and CMP was otherwise unremarkable. No surgical abdomen. Reevaluation of the abdomen without any specific tenderness. Patient appears well and nontoxic. Patient will be discharged with strong follow-up with [facility] care physician. Recommend cardiac outpatient follow-up. If any worsening symptoms return back to ED (GALLO CALLAHAN) Impression Primary Impression: Chest pain Additional Impression: Dizziness Disposition: 01 HOME, SELF-CARE Condition: Stable Departure-Patient Inst. Decision time for Depature: 14:29 (GALLO CALLAHAN) Referrals: MARÍA ZURITA MD (PCP/Family) Primary Care Physician BENI MACKENZIE MD Patient Instructions: Dizziness, Adult ED Add. Discharge Instructions: Recommend staying hydrated. Continue with your medication for GERD. Follow-up with PCP for further evaluation. If any worsening chest pain or dizziness to return back to ED. All discharge instructions reviewed with patient and/or family. Voiced understanding. ATTENDING PHYSICIAN NOTE: I was physically present as attending physician in the emergency department during the care of this patient, but I was not directly involved in the decision making or delivery of care for this patient. (KAITLIN MIKE MD) GALLO CALLAHAN Jul 05, 2022 12:20 KAITLIN MIKE MD Jul 06, 2022 09:20
[2022-07-05 12:44] LABS: BASOPHILS # (AUTO) 0.1 10^3/uL (0.0-0.1); BASOPHILS % (AUTO) 1 % (0-10); EOSINOPHILS % (AUTO) 0 % (0-10); HEMATOCRIT 47 % (40-54); LYMPHOCYTES # (AUTO) 0.8 10^3/uL (1.0-4.0); LYMPHOCYTES % (AUTO) 11 % (12-44); MEAN CORPUSCULAR HEMOGLOBIN 29 pg (25-34); MEAN CORPUSCULAR HGB CONC 36 g/dL (32-36); MEAN CORPUSCULAR VOLUME 82 fL (80-99); MEAN PLATELET VOLUME 10.5 fL (9.0-12.2); MONOCYTES # (AUTO) 0.5 10^3/uL (0.0-1.0); MONOCYTES % (AUTO) 7 % (0-12); NEUTROPHILS # (AUTO) 6.2 10^3/uL (1.8-7.8); NEUTROPHILS % (AUTO) 81 % (42-75); PLATELET COUNT 266 10^3/uL (130-400); WHITE BLOOD COUNT 7.7 10^3/uL (4.3-11.0)
--- NOTE | 2022-07-05 13:09 | Diagnostic Imaging Report ---
Indication: Dizziness and vomiting Portable chest 1:10 PM Heart and mediastinum are normal. Lungs are clear. There are no effusions or pneumothoraces. IMPRESSION: Negative chest Dictated by: Dictated on workstation # [id number]
[2022-07-05 13:11] LABS: ALBUMIN 4.9 GM/DL (3.2-4.5); CHLORIDE 105 MMOL/L (98-107); POTASSIUM 3.8 MMOL/L (3.6-5.0); SODIUM 140 MMOL/L (135-145)
[2022-07-05 13:13] LABS: CALCIUM 9.8 MG/DL (8.5-10.1)
[2022-07-05 13:14] LABS: GLUCOSE 109 MG/DL (70-105); TOTAL PROTEIN 7.7 GM/DL (6.4-8.2)
[2022-07-05 13:15] LABS: CARBON DIOXIDE 27 MMOL/L (21-32)
[2022-07-05 13:16] LABS: BILIRUBIN,TOTAL 0.8 MG/DL (0.1-1.0)
[2022-07-05 13:17] LABS: ALKALINE PHOSPHATASE 81 U/L (40-136)
[2022-07-05 13:18] LABS: CREATININE SERUM 1.21 MG/DL (0.60-1.30); GFR ESTIMATED 81
[2022-07-05 13:19] LABS: BUN/CREATININE RATIO 16
[2022-07-05 13:20] LABS: ALANINE AMINOTRANSFERASE 62 U/L (0-55); MAGNESIUM 2.3 MG/DL (1.6-2.4)
[2022-07-05] MEDS ORDERED: MECLIZINE 25 MG (ANTIVERT) TAB PO ONE (13:45)
[2022-07-05 14:37] VITALS: BP 139/89
== END 2022-07-05 14:37 | disposition home or self-care (01) ==
LOC: EDUNIT# 11:26 → ER 11:28
DX: R07.9 Chest pain, unspecified (principal); R42 Dizziness and giddiness; R00.2 Palpitations; K21.9 Gastro-esophageal reflux disease without esophagitis; Z79.899 Other long term (current) drug therapy
CPT/HCPCS: 36415; 71045; 80053; 83735; 84484; 85025; 86141; 93005